=== PATIENT | male | born 2000 | race Caucasian/White ===

== ENCOUNTER 2023-10-29 15:45 | Emergency (ER) | payer SELFPAY ==
[~2023-10-29] VITALS: Ht 165.1 cm; Wt 70.0 kg
[2023-10-29 16:06] VITALS: O2SAT 96
[2023-10-29] MEDS ORDERED: SULFACETAMIDE SODIUM 10% OPHTH DROPS 15ML LEFTEYE ONE (16:45)
[2023-10-29] MEDS: FLUORESCEIN SODIUM 1MG/STRIP LEFTEYE ONE (16:56)
[2023-10-29] MEDS: BALANCED SALT IRRIG SOLN 15ML IR ONE (16:56)
[2023-10-29] MEDS: ACETAMINOPHEN 325MG TABLET PO STA (16:56)
[2023-10-29] MEDS: TETRACAINE 0.5% OPHTH DROPS 4ML LEFTEYE ONE (16:56)
[2023-10-29] MEDS ORDERED: ERYT1OIN6 LEFTEYE (18:05)
[2023-10-29] MEDS ORDERED: NAPR-681 PO (18:05)
[2023-10-29 18:09] VITALS: BP 120/62; PULSE 60; RESP 16; TEMP 98.3
[2023-10-29] MEDS: NEO/POLYMYX B SULF/DEXAMETH OPHTH OINT 3.5GM LEFTEYE SCH (18:23)
== END 2023-10-29 18:10 | disposition home or self-care (01) ==
LOC: ER 15:45
DX: T15.02XA Foreign body in cornea, left eye, initial encounter (principal)
CPT/HCPCS: 99283